=== PATIENT | male | born 1970 | race Two or more races ===

== ENCOUNTER 2018-08-08 14:02 | Observation (INO) | payer MEDICAID ==
[2018-08-08] VITALS (16 sets, daily range): BP systolic 94–155; BP diastolic 43–88
[~2018-08-08] VITALS: Ht 167.6 cm; Wt 72.7 kg
[2018-08-08] MEDS ORDERED: NO HOME MEDS (15:26)
[2018-08-08 15:41] LABS: BASOPHILS # (AUTO) 0.1 X10'3 (0-0.2); BASOPHILS % (AUTO) 0.5 % (0-1); EOSINOPHILS # (AUTO) 0.5 X10'3 (0-0.9); EOSINOPHILS % (AUTO) 3.4 % (0-6); HEMATOCRIT 44.1 % (42.0-52.0); HEMOGLOBIN 15.1 g/dl (14.0-17.9); LYMPHOCYTES # (AUTO) 0.9 X10'3 (1.1-4.8); LYMPHOCYTES % (AUTO) 6.7 % (21-51); MEAN CORPUSCULAR HEMOGLOBIN 28.8 PG (27.0-31.0); MEAN CORPUSCULAR HGB CONC 34.3 g/dL (33.0-36.5); MEAN CORPUSCULAR VOLUME 83.9 FL (78-98); MEAN PLATELET VOLUME 8.9 FL (7.4-10.4); MONOCYTES # (AUTO) 1.1 X10'3 (0-0.9); MONOCYTES % (AUTO) 7.9 % (2-12); NEUTROPHILS % (AUTO) 81.5 % (42-75); PLATELET COUNT 222 X10'3 (140-440); RED BLOOD COUNT 5.25 X10'6 (4.70-6.10); RED CELL DISTRIBUTION WIDTH 14.4 % (11.5-14.5); WHITE BLOOD COUNT 13.5 X10'3 (4.5-11.0)
[2018-08-08 15:55] LABS: ALANINE AMINOTRANSFERASE 26 U/L (12-78); ALBUMIN 3.6 G/DL (3.4-5.0); ALBUMIN/GLOBULIN RATIO 1.1 (1.1-1.5); ALKALINE PHOSPHATASE 64 IU/L (46-116); ANION GAP 6 (8-16); ASPARTATE AMINO TRANSFERASE 11 U/L (10-37); BILIRUBIN,TOTAL 1.2 MG/DL (0.1-1.0); BLOOD UREA NITROGEN 14 MG/DL (7-18); BUN/CREATININE RATIO 14.7 (5.4-32.0); CALCIUM 8.3 MG/DL (8.5-10.1); CHLORIDE 104 MMOL/L (99-107); CREATININE 0.95 MG/DL (0.60-1.10); GLUCOSE 101 MG/DL (70-104); POTASSIUM 3.5 MMOL/L (3.5-5.1); SODIUM 138 MMOL/L (135-145); TOTAL CARBON DIOXIDE 28.5 MMOL/L (24-32); TOTAL PROTEIN 6.9 G/DL (6.4-8.2); eGFR 85 ML/MIN
[2018-08-08 15:57] LABS: PARTIAL THROMBOPLASTIN TIME 29 SECONDS (22-32)
[2018-08-08 16:12] LABS: CLARITY,URINE CLEAR (Clear); COLOR,URINE YELLOW (Yellow); GLUCOSE, URINE NEGATIVE (Neg); KETONES,URINE NEGATIVE (Neg); LEUKOCYTE ESTERASE ,URINE NEGATIVE (Neg); NITRITES, URINE NEGATIVE (Neg); OCCULT BLOOD,URINE SMALL (Neg); PH,URINE 6.5 (4.8-8.0); PROTEIN,URINE NEGATIVE (Neg); UROBILINOGEN,URINE 0.2 E.U/dL (0.2-1.0)
[2018-08-08 16:13] LABS: UA COLLECTION TYPE CLN CATCH MIDSTREAM
[2018-08-08 16:19] LABS: BACTERIA,URINE NONE SEEN /HPF (Neg); SQUAMOUS EPITHELIAL CELL,UR NONE SEEN /LPF (FEW); WBC,URINE 0-4 /HPF (0-4)
[2018-08-08] MEDS ORDERED: cefotetan inj 1 GM in normal saline 50ml IV soln 50 ML IV STA (16:23)
[2018-08-08] MEDS ORDERED: sevoflurane 250ml liquid IH ONE (16:31)
[2018-08-08] MEDS ORDERED: fentaNYL /PF 50mcg/ml 5ml ampule ONE (16:37)
[2018-08-08] MEDS ORDERED: midazolam 2 mg/2 ml injection ONE (16:37)
[2018-08-08] MEDS ORDERED: propofol inj 20 ML IV ONE (16:37)
[2018-08-08] MEDS ORDERED: rocuronium 10mg/ml inj IV ONE (16:39)
[2018-08-08] MEDS ORDERED: ceFAZolin 1000mg inj ONE (16:48)
[2018-08-08] MEDS ORDERED: BUPIVAcaine/PF 2.5 mg/ml (0.25%) 30ml vial ONE (16:49)
[2018-08-08] MEDS ORDERED: LIDOcaine 1% 30ml preserv. free vial ONE (16:49)
[2018-08-08] MEDS ORDERED: neostigmine methylsulfate 1 MG/ML 10ml vial ONE (17:30)
[2018-08-08] MEDS ORDERED: glycopyrrolate 0.2mg/ml inj ONE (17:30)
[2018-08-08] MEDS ORDERED: ondansetron/PF 4mg/2ml inj IV PRN (17:35)
[2018-08-08] MEDS ORDERED: HYDROcodone/acetaminophen 10/325mg tab PO PRN (17:35)
[2018-08-08] MEDS ORDERED: HYDROcodone/acetaminophen 5mg/325mg tablet PO PRN (17:35)
--- NOTE | 2018-08-08 17:35 | NUR ---
Received from OR via BED , accompanied by Anesthesiologist DR ELDRIDGE and report given by Anesthesiolgist. PATIENT WAKING UP, V/S WNL, NEUROVASCULAR CHECKS INTACT, 20G PIV LUE, SCD ON, BANDAIDS TO LAP SIGHTS OF ABDOMEN CDI
--- NOTE | 2018-08-08 18:25 | NUR ---
PATIENT A&OX4, DENIES PAIN, V/S WNL, NEUROVASCULAR CHECKS INTACT, 20G PIV LUE, SCD ON, BANDAIDS TO LAP SIGHTS OF ABDOMEN CDI. PATIENT TAKEN TO SURGICAL WITH ALL BELONGINGS AND HOOKED UP TO MONITORS IN ROOM AND REPORT GIVEN TO RN WHO HAS TAKEN OVER PATIENT CARE.
[2018-08-08] MEDS: cefotetan inj 1 GM in normal saline 50ml IV soln 50 ML IV SCH ×3 (18:50→23:37)
[2018-08-08] MEDS ORDERED: HYDROmorphone 1 mg/ml syringe IV PRN (19:40)
[2018-08-08] MEDS: ketorolac tromethamine 15mg/ml inj. IV SCH (23:37)
[2018-08-09] VITALS: BP 111/62
[2018-08-09] MEDS ORDERED: ceFOXitin 1 GM ADDVANTAGE BAG 1,000 GM in normal saline 100ml IV soln 100 ML IV SCH ×2
[2018-08-09] MEDS: Potassium Cl inj 20 MEQ in ringers solution, lacted 1,000 ML IV SCH ×5 (01:40→23:26)
[2018-08-09] MEDS: ketorolac tromethamine 15mg/ml inj. IV SCH ×4 (02:00→19:43)
[2018-08-09 05:37] LABS: BASOPHILS % (AUTO) 0.2 % (0-1); EOSINOPHILS % (AUTO) 0.3 % (0-6); HEMATOCRIT 34.7 % (42.0-52.0); HEMOGLOBIN 11.9 g/dl (14.0-17.9); LYMPHOCYTES # (AUTO) 0.9 X10'3 (1.1-4.8); LYMPHOCYTES % (AUTO) 6.3 % (21-51); MEAN CORPUSCULAR HGB CONC 34.2 g/dL (33.0-36.5); MEAN CORPUSCULAR VOLUME 84.8 FL (78-98); MEAN PLATELET VOLUME 9.2 FL (7.4-10.4); MONOCYTES # (AUTO) 1.1 X10'3 (0-0.9); MONOCYTES % (AUTO) 8.1 % (2-12); NEUTROPHILS # (AUTO) 12.1 X10'3 (1.8-7.7); NEUTROPHILS % (AUTO) 85.1 % (42-75); PLATELET COUNT 214 X10'3 (140-440); RED BLOOD COUNT 4.09 X10'6 (4.70-6.10); RED CELL DISTRIBUTION WIDTH 14.3 % (11.5-14.5); WHITE BLOOD COUNT 14.2 X10'3 (4.5-11.0)
--- NOTE | 2018-08-09 06:30 | NUR ---
Patient in room [facility]. I have received report from JADON GILL and had the opportunity to ask questions and assume patient care.
--- NOTE | 2018-08-09 06:30 | NUR ---
Patient in room [facility]. I have received report from Collin GILL and had the opportunity to ask questions and assume patient care.
--- NOTE | 2018-08-09 06:47 | NUR ---
Problems reprioritized. Patient report given, questions answered & plan of care reviewed with Geovanny RN.
--- NOTE | 2018-08-09 06:54 | NUR ---
Observed Collin GILL care and agree with care provided.
[2018-08-09 07:20] VITALS: BP 115/59
[2018-08-09] MEDS: cefotetan inj 1 GM in normal saline 50ml IV soln 50 ML IV SCH (07:51)
[2018-08-09 11:37] VITALS: BP 113/66
[2018-08-09] MEDS ORDERED: oxyCODONE/APAP 10/325mg tablet PO PRN (12:55)
[2018-08-09] MEDS: oxyCODONE/APAP 5-325mg tablet PO PRN ×2 (14:57→22:39)
[2018-08-09 18:00] VITALS: BP 130/88
--- NOTE | 2018-08-09 18:05 | NUR ---
Patient in room [facility]. I have received report from Geovanny GILL and had the opportunity to ask questions and assume patient care.
--- NOTE | 2018-08-09 18:30 | NUR ---
Problems reprioritized. Patient report given, questions answered & plan of care reviewed with Collin GILL.
[2018-08-10] VITALS: BP 128/73
[2018-08-10] MEDS: ketorolac tromethamine 15mg/ml inj. IV SCH ×5 (02:00→20:01)
--- NOTE | 2018-08-10 06:26 | NUR ---
Problems reprioritized. Patient report given, questions answered & plan of care reviewed with Geovanny RN.
--- NOTE | 2018-08-10 06:30 | NUR ---
Patient in room [facility]. I have received report from Collin GILL and had the opportunity to ask questions and assume patient care.
[2018-08-10 07:18] VITALS: BP 125/72
[2018-08-10 11:00] VITALS: BP 119/68
[2018-08-10] MEDS: Potassium Cl inj 20 MEQ in ringers solution, lacted 1,000 ML IV SCH ×2 (11:25→16:53)
[2018-08-10] MEDS ORDERED: magnesium hydroxide 30ml (MOM) UD suspension PO ONE (12:20)
[2018-08-10 13:37] LABS: BASOPHILS % (AUTO) 0.5 % (0-1); EOSINOPHILS # (AUTO) 0.6 X10'3 (0-0.9); EOSINOPHILS % (AUTO) 7.7 % (0-6); HEMATOCRIT 30.2 % (42.0-52.0); HEMOGLOBIN 10.8 g/dl (14.0-17.9); MEAN CORPUSCULAR HGB CONC 35.8 g/dL (33.0-36.5); MEAN CORPUSCULAR VOLUME 83.8 FL (78-98); MEAN PLATELET VOLUME 8.9 FL (7.4-10.4); MONOCYTES # (AUTO) 0.6 X10'3 (0-0.9); MONOCYTES % (AUTO) 7.9 % (2-12); NEUTROPHILS % (AUTO) 69.9 % (42-75); PLATELET COUNT 204 X10'3 (140-440); RED BLOOD COUNT 3.61 X10'6 (4.70-6.10); RED CELL DISTRIBUTION WIDTH 13.9 % (11.5-14.5); WHITE BLOOD COUNT 7.2 X10'3 (4.5-11.0)
--- NOTE | 2018-08-10 18:30 | NUR ---
Problems reprioritized. Patient report given, questions answered & plan of care reviewed with Kayla GILL.
[2018-08-10 19:00] VITALS: BP 136/82
[2018-08-11] VITALS: BP 149/89
[2018-08-11] MEDS: Potassium Cl inj 20 MEQ in ringers solution, lacted 1,000 ML IV SCH ×2 (00:26→08:38)
[2018-08-11] MEDS: ketorolac tromethamine 15mg/ml inj. IV SCH ×3 (02:19→14:00)
[2018-08-11 05:53] LABS: BASOPHILS # (AUTO) 0.1 X10'3 (0-0.2); BASOPHILS % (AUTO) 1.1 % (0-1); EOSINOPHILS # (AUTO) 0.9 X10'3 (0-0.9); HEMATOCRIT 29.3 % (42.0-52.0); HEMOGLOBIN 10.4 g/dl (14.0-17.9); LYMPHOCYTES # (AUTO) 1.5 X10'3 (1.1-4.8); LYMPHOCYTES % (AUTO) 20.6 % (21-51); MEAN CORPUSCULAR HEMOGLOBIN 29.6 PG (27.0-31.0); MEAN CORPUSCULAR HGB CONC 35.4 g/dL (33.0-36.5); MEAN CORPUSCULAR VOLUME 83.5 FL (78-98); MONOCYTES # (AUTO) 0.6 X10'3 (0-0.9); MONOCYTES % (AUTO) 8.9 % (2-12); NEUTROPHILS # (AUTO) 4.1 X10'3 (1.8-7.7); NEUTROPHILS % (AUTO) 57.4 % (42-75); PLATELET COUNT 214 X10'3 (140-440); RED BLOOD COUNT 3.51 X10'6 (4.70-6.10); RED CELL DISTRIBUTION WIDTH 14.1 % (11.5-14.5); WHITE BLOOD COUNT 7.1 X10'3 (4.5-11.0)
--- NOTE | 2018-08-11 06:18 | NUR ---
Problems reprioritized. Patient report given, questions answered & plan of care reviewed with Geovanny GILL. Addendum: 08/11/18 at 0618 by Kayla Harris RN Amended: Links added.
--- NOTE | 2018-08-11 06:30 | NUR ---
Patient in room [facility]. I have received report from Kayla GILL and had the opportunity to ask questions and assume patient care.
[2018-08-11 07:36] VITALS: BP 134/75
[2018-08-11 11:00] VITALS: BP 133/73
[2018-08-11] MEDS ORDERED: HYDR-4353 PO (14:38)
--- NOTE | 2018-08-11 16:30 | NUR ---
Patient discharge teaching was completed verbally with patient, Patient discharge with Rx that is going to be hand deliver to patients own pharmacy. Patient understand the new medicaiton instructions Patient IV was taken out at theim time of discharge canula was whole and intact upon discharge. Patient verbally expressed understanding of follow up information and to schedule with dr. shaw. Patient was transported home via private vehicle.
== END 2018-08-11 16:53 | disposition home or self-care (01) ==
LOC: EDBD 14:03 → ER 14:03 → SUR 3N 18:10
PROVIDERS: ADMIT Surgery; ATTEND Surgery
DX: K35.30 Acute appendicitis with localized peritonitis, without perforation or gangrene (principal)
CPT/HCPCS: 36415; 44970; 80053; 81001; 85025; 85610; 85730; 86885; 86900; 86901; 87070; 96365; 96366; 96375; 96376; 99284; G0378; J0690; J1885; J2250; J2405; J2704; J2710; J3010; J3480; J3490; J7120; 93005; A7000; J7040